=== PATIENT | female | born 1980 | race Two or more races ===

== ENCOUNTER 2025-05-01 08:15 | Inpatient (IN) | payer OTHER ==
[~2025-05-01] VITALS: Ht 170.2 cm; Wt 86.2 kg
[2025-05-01 08:53] VITALS: BP 119/81
[2025-05-01 09:24] LABS: URINE APPEARANCE Clear; URINE BILIRRUBIN Negative (NEGATIVE); URINE BLOOD Negative; URINE COLOR Yellow; URINE GLUCOSE Negative (NEGATIVE); URINE KETONE Negative (NEGATIVE); URINE LEUKOCYTE Negative; URINE NITRATE Negative; URINE PROTEIN Negative (NEGATIVE); URINE UROBILINOGEN 0.2 E.U./dl
[2025-05-01 09:28] LABS: URINE BACTERIA 327.5 uL (0.0-1933); URINE EPITHELIAL CELLS 17.5 uL (0.0-38.8); URINE RBC 4.9 uL (0.0-20.8); URINE WBC 11.6 uL (0.0-23.2)
[2025-05-01 09:30] LABS: URINE CAST 0.00 uL (0.0-1.40)
[2025-05-01 09:33] LABS: BASO % 0.5 % (0.1-1.2); EOS # 0.13 (0.04-0.54); EOS % 2.3 % (0.7-7.0); LYMPH # 1.95 (1.18-3.74); LYMPH % 34.3 % (19.3-53.1); MEAN PLATELET VOLUME 11.00 fl (9.4-12.4); MONO # 0.41 (0.24-0.82); MONO % 7.2 % (4.7-12.5); NEUT # 3.14 (1.56-6.13); NEUT % 55.3 % (34.0-71.1); RED CELL DISTRIBUTION WIDTH 14.9 % (11.6-14.4)
[2025-05-01 10:25] LABS: ALT/SGPT 21.0 U/L (12-78); AST/SGOT 12.0 U/L (15-37); BILIRUBIN TOTAL 0.68 mg/dL (0.3-1.2); BUN CREA RATIO 14.0 (7.0-25.0); CREATININE SERUM 0.63 mg/dL (0.55-1.02); GFR 103.14; GLOBULINA 3.8 G/DL (2.4-3.5); GLUCOSE FASTING 83.0 mg/dL (65-100); OSMOLALITY SERUM 281.0 MOSM/KG (275-295)
[2025-05-01 11:11] LABS: INR 0.98
[2025-05-23] MEDS ORDERED: POVIDONE-IODINE 118 ML BOTT TOP ONE ×2 (15:18→19:00)
[2025-05-23] MEDS ORDERED: CEFOXITIN SODIUM 2,000 MG VIAL IV ONE (19:00)
[2025-05-23] MEDS ORDERED: KETOROLAC TROMETHAMINE 60 MG VIAL IM STA (19:30)
[2025-05-23] MEDS ORDERED: RINGERS SOLUTION,LACTATED 1,000 ML IV SCH (19:30)
[2025-05-23] MEDS ORDERED: MORPHINE SULFATE 4 MG/ML CARTRIDGE IV STA (19:34)
[2025-05-23] MEDS ORDERED: ONDANSETRON HCL 2 MG/ML VIAL ONE (19:50)
[2025-05-23 20:34] LABS: BASO % 0.2 % (0.1-1.2); EOS # 0.01 (0.04-0.54); EOS % 0.0 % (0.7-7.0); LYMPH # 2.41 (1.18-3.74); LYMPH % 10.5 % (19.3-53.1); MEAN PLATELET VOLUME 10.70 fl (9.4-12.4); MONO # 1.11 (0.24-0.82); MONO % 4.9 % (4.7-12.5); NEUT # 19.17 (1.56-6.13); NEUT % 84.0 % (34.0-71.1); RED CELL DISTRIBUTION WIDTH 14.6 % (11.6-14.4)
[2025-05-23 21:18] LABS: LYMPHOCYTE MAN 9.0 %; MONOCYTE MAN 6.0 %; NEUTROPHILS MAN 83.0 %
[2025-05-23] MEDS ORDERED: KETOROLAC TROMETHAMINE 60 MG VIAL IM ONE (21:47)
[2025-05-23 22:17] VITALS: BP 130/84
[2025-05-24] MEDS ORDERED: MORPHINE SULFATE 4 MG/ML VIAL IV PRN ×2 (01:00)
[2025-05-24 01:23] VITALS: BP 130/75
[2025-05-24 04:00] VITALS: BP 131/85
[2025-05-24] MEDS ORDERED: ACETAMINOPHEN 325 MG TABLET PO PRN (09:00)
[2025-05-24] MEDS ORDERED: OxyCODONE HCL 5 MG TABLET (ROXICODONE) PO SCH (09:00)
[2025-05-24 09:18] VITALS: BP 126/77
[2025-05-24] MEDS ORDERED: DIPHENHYDRAMINE HCL 25 MG CAPSULE PO NR (14:15)
[2025-05-24 16:28] VITALS: BP 113/72
[2025-05-25] VITALS: BP 99/64
[2025-05-25 08:41] VITALS: BP 136/77
[2025-05-25 16:40] VITALS: BP 104/71
[2025-05-26] VITALS: BP 134/82
[2025-05-26 08:00] VITALS: BP 111/77
== END 2025-05-26 10:19 | disposition home or self-care (01) | DRG 743 ==
LOC: OB/GYN 05-09 08:15 → O/R 05-23 12:00 → OB/GYN 05-23 12:00
PROVIDERS: ADMIT Obstetrics & Gynecology; ATTEND Obstetrics & Gynecology
PROC: 0UT70ZZ Resection of Bilateral Fallopian Tubes, Open Approach (ICD-10-PCS; 2025-05-23)
PROC: 0UT90ZZ Resection of Uterus, Open Approach (ICD-10-PCS; principal; 2025-05-23 07:00)
DX: D25.1 Intramural leiomyoma of uterus (principal); D25.2 Subserosal leiomyoma of uterus